=== PATIENT | male | born 1945 | race Caucasian/White ===

== ENCOUNTER 2018-02-10 07:11 | Emergency (ER) | payer OTHER ==
[~2018-02-10] VITALS: Ht 182.9 cm; Wt 90.7 kg
[2018-02-10] MEDS ORDERED: GLIPIZIDE10 MG (07:26)
[2018-02-10] MEDS ORDERED: FORTAMET1000 MG (07:27)
[2018-02-10] MEDS ORDERED: BACTRIM DS TAB1 EACH PO ×2 (09:13→09:14)
[2018-02-10] MEDS ORDERED: INTESTINEX680 M1 PO (09:14)
== END 2018-02-10 12:36 | disposition home or self-care (01) ==
LOC: ER 07:11
DX: L02.211 Cutaneous abscess of abdominal wall (principal)

== ENCOUNTER 2019-06-27 01:39 | Emergency (ER) | payer OTHER ==
[~2019-06-27] VITALS: Ht 210.8 cm; Wt 90.7 kg
[~2019-06-27 01:39] MED LIST: BACTRIM DS TAB1 EACH PO; FORTAMET1000 MG; GLIPIZIDE10 MG; INTESTINEX680 M1 PO
[2019-06-27] MEDS ORDERED: DUI500 PO (08:44)
[2019-06-27] MEDS ORDERED: TAMS0.4C PO (08:44)
[2019-06-27] MEDS ORDERED: URIN D.S. TABL1 EACH PO (08:44)
== END 2019-06-27 10:09 | disposition home or self-care (01) ==
LOC: ER 01:39
DX: N40.1 Benign prostatic hyperplasia with lower urinary tract symptoms (principal); R33.8 Other retention of urine; N39.0 Urinary tract infection, site not specified; B96.29 Other Escherichia coli [E. coli] as the cause of diseases classified elsewhere

== ENCOUNTER 2019-07-03 20:26 | Emergency (ER) | payer OTHER ==
[~2019-07-03] VITALS: Ht 175.3 cm; Wt 86.2 kg
[~2019-07-03 20:26] MED LIST changes: +DUI500 PO; +TAMS0.4C PO; +URIN D.S. TABL1 EACH PO
[2019-07-03] MEDS ORDERED: LANTUS SOL100 UNIT/1 (20:37)
== END 2019-07-04 04:28 | disposition home or self-care (01) ==
LOC: ER 20:26
DX: N40.1 Benign prostatic hyperplasia with lower urinary tract symptoms (principal); R33.8 Other retention of urine; R30.0 Dysuria; N39.0 Urinary tract infection, site not specified